=== PATIENT | female | born 1940 | race African-American/Black ===

== ENCOUNTER 2024-09-20 08:34 | Emergency (ER) | payer OTHER ==
[~2024-09-20] VITALS: Ht 165.1 cm; Wt 81.0 kg
[2024-09-20 08:41] VITALS: O2SAT 99
[2024-09-20] MEDS: SODIUM CHLORIDE 0.9% 1,000 ML IV ONE (09:25)
[2024-09-20 09:44] LABS: HEMATOCRIT. 36.7 % (36.0-48.0); HEMOGLOBIN. 11.6 g/dL (12.0-16.0); MEAN CORPUSCULAR HEMOGLOBIN 27.4 pg (28.0-32.0); MEAN CORPUSCULAR HGB CONC 31.5 g/dL (31.0-37.0); MEAN PLATELET VOLUME 8.4 fl (7.4-10.4); PLATELET 215 x1000/uL (130-400); RED BLOOD CELL COUNT 4.22 mill/uL (4.2-5.4); RED CELL DISTRIBUTION WIDTH 13.7 % (11.6-14.6); WHITE BLOOD COUNT 11.6 x1000/uL (4.5-11.0)
[2024-09-20 09:56] LABS: CARBON DIOXIDE 25 mEq/L (21-32); CHLORIDE 105 mEq/L (98-107); POTASSIUM 4.5 mEq/L (3.5-5.1); SODIUM 137 mEq/L (136-145)
[2024-09-20 09:57] LABS: CALCIUM 9.2 mg/dL (8.7-10.4); INR 1.1; PROTHROMBIN TIME 11.9 sec (9.6-11.0)
[2024-09-20 10:01] LABS: CREATININE 1.3 mg/dL (0.6-1.0); GLUCOSE 117 mg/dL (70-105)
[2024-09-20 10:02] LABS: TROPONIN I HIGH SENSITIVITY 13 ng/L (3.0-34); UREA NITROGEN BLOOD 18 mg/dL (9-23)
[2024-09-20] MEDS: ACETAMINOPHEN 1000MG/100ML 100 ML IV ONE (10:02)
[2024-09-20 10:03] LABS: ALANINE AMINOTRANSFERASE 30 IU/L (10-49); ALBUMIN 3.9 g/dL (3.2-4.8); ASPARTATE AMINOTRANSFERASE 39 IU/L (<34)
[2024-09-20 10:04] LABS: BILIRUBIN DIRECT 0.2 mg/dL (<=3.0); BILIRUBIN TOTAL 0.7 mg/dL (0.1-1.0); PROTEIN TOTAL 8.1 g/dL (6.0-8.3)
[2024-09-20 10:10] LABS: DIFFERENTIAL COMMENT 1
[2024-09-20 12:10] LABS: PLATELET ESTIMATE NORMAL
[2024-09-20 12:18] LABS: TROPONIN I HIGH SENSITIVITY 13 ng/L (3.0-34)
[2024-09-20 13:00] VITALS: BP 120/56; PULSE 79; RESP 15; TEMP 36.7; O2SAT 96
[2024-09-20 13:40] LABS: CLARITY URINE CLEAR (CLEAR); COLOR URINE DARK YELLOW (YELLOW); GLUCOSE URINE NEGATIVE (NEGATIVE); KETONES URINE NEGATIVE (NEGATIVE); LEUKOCYTE ESTERASE URINE 2+ (NEGATIVE); NITRITE URINE NEGATIVE (NEGATIVE); OCCULT BLOOD URINE NEGATIVE (NEGATIVE); PROTEIN URINE NEGATIVE (NEGATIVE); SPECIFIC GRAVITY URINE 1.017 (1.005-1.030); UROBILINOGEN URINE 0.2 E.U./dL (0.2-1.0)
[2024-09-20] MEDS ORDERED: CEPH500C2 MT (13:43)
[2024-09-20 13:53] LABS: BACTERIA URINE 1+; RBC URINE 0-2 /hpf (0-2); SQUAMOUS EPITHELIAL CELL URINE 2+ /lpf (RARE/1+); YEAST URINE NONE SEEN
[2024-09-20] MEDS: CEFTRIAXONE 1GM/50ML 50 ML IV SCH (14:00)
== END 2024-09-20 14:30 | disposition home or self-care (01) ==
LOC: ER 08:34
DX: R55 Syncope and collapse (principal); N39.0 Urinary tract infection, site not specified; I10 Essential (primary) hypertension; Z88.1 Allergy status to other antibiotic agents; Z88.5 Allergy status to narcotic agent; Z88.6 Allergy status to analgesic agent; Z88.8 Allergy status to other drugs, medicaments and biological substances; Z90.710 Acquired absence of both cervix and uterus; Z79.899 Other long term (current) drug therapy
CPT/HCPCS: 99285; 70450; 96365; 71045; 96367; 96361; 80076; 80048; 81003; 83880; 83690; 85025; 85610; 87086; 87186; 84484; 87077; 36415; 74176; 93005; J0696; J7030; A4606; J0131